=== PATIENT | male | born 1965 | race Caucasian/White ===

== ENCOUNTER → 2016-10-28 | Outpatient (CLI) | payer OTHER ==
[2016-10-28 15:58] LABS: ALT 45 U/L (21-72); AST 31 U/L (17-59); Cholesterol 139 mg/dL (<200); Creatine Kinase 150 U/L (55-170); HDL Cholesterol 34 mg/dL (40-60); Triglycerides 149 mg/dL (<150)
== END | disposition home or self-care (01) ==
LOC: LABWHC1 15:18
PROVIDERS: ATTEND Internal Medicine Interventional Cardiology
DX: E78.2 Mixed hyperlipidemia (principal)
CPT/HCPCS: 36415; 80061; 82550; 84450; 84460

== ENCOUNTER → 2017-01-08 | Outpatient (CLI) | payer OTHER ==
--- NOTE | 2017-01-08 22:55 | PN ---
PROGRESS NOTE DATE OF SERVICE: 01/08/2017 This patient is a 51-year-old gentleman who has been followed in the sleep center for treatment of obstructive sleep apnea-hypopnea syndrome. The patient had a polysomnogram done about 1 year ago, and at that time he was not able to proceed with the CPAP titration. Today the patient came to discuss the results of the sleep study. I discussed the results of the sleep study with the patient in detail. He has severe obstructive sleep apnea. Apnea-hypopnea index is 69.7 and oxygen saturation of 63.4%. Patient continues to have symptoms of obstructive sleep apnea at the present time. He still snores, wakes up from sleep. [place] Sleepiness Scale is 5. His weight is 5 pounds more than during the sleep study 1 year ago. MEDICATIONS: 1. Aspirin. 2. Metoprolol. 3. Atorvastatin. 4. Nitroglycerin on a p.r.n. basis. PHYSICAL EXAM: This is a pleasant 51-year-old gentleman without distress. VITAL SIGNS: BP 118/76, HR 55, RR 16, height 5 feet 8 inches, weight 233.6, BMI 34.3. Neck 19 inches in circumference. Temperature 98.4. Oxygen saturation at room air 96%. HEENT: PERRLA, EOMI. Evaluation of oropharynx showed tongue protrudes midline. Low position of soft palate. NECK: Supple. No JVD. Thyroid is not palpable. LUNGS: Clear to percussion and to auscultation. Good air exchange. No wheezing or rhonchi. HEART: S1, S2 with some irregularities. Slight systolic murmur. ABDOMEN: Obese. EXTREMITIES: No clubbing or cyanosis. YARN CARRIER: Awake, alert and oriented x3. Cranial nerves 2 to 7 intact. There is no fasciculation or atrophy noted. No focal deficits observed. IMPRESSION: 1. Severe obstructive sleep apnea-hypopnea syndrome by results of sleep study from 01/14/2016. 2. Obesity. 3. Coronary artery disease. 4. Status post stent insertion to coronary artery. 5. Hyperlipidemia. PLAN: 1. CPAP titration for correction of respiratory abnormalities during sleep. 2. Losing weight. 3. Sleep hygiene with regular time in bed for at least 8 hours. 4. No driving if feeling any sleepiness. Thank you very much for allowing me to participate in the management of your patient. Sincerely, Aditya Byrd MD, PhD, FAASM Diplomat of [place] [employer] [place] [employer] Photographer Assistant of [facility] [place] MMSUAD / ISSAC: [id number] /
== END | disposition home or self-care (01) ==
LOC: SLEEP 14:15
PROVIDERS: ATTEND Internal Medicine
DX: G47.33 Obstructive sleep apnea (adult) (pediatric) (principal); E66.9 Obesity, unspecified; I25.10 Atherosclerotic heart disease of native coronary artery without angina pectoris; E78.5 Hyperlipidemia, unspecified; Z95.5 Presence of coronary angioplasty implant and graft; Z79.82 Long term (current) use of aspirin

== ENCOUNTER → 2017-04-01 | Outpatient (CLI) | payer OTHER ==
--- NOTE | 2017-04-01 11:45 | PN ---
PROGRESS NOTE DATE OF SERVICE: 04/01/2017 A 51-year-old gentleman who has been followed in the Sleep Center for treatment of obstructive sleep apnea-hypopnea syndrome. Recently patient had a polysomnogram and CPAP titration and I discussed results of the sleep studies with patient in details. He has severe sleep apnea and recently was started on treatment with CPAP. He is able to use CPAP every night and does not snore with treatment. I checked his CPAP unit. Usage is 30/30 nights. Usage for more than 4 hours are 22/30 nights. CPAP pressure is 10 cm of water. Leak is 11 L/minute which is acceptable. Average usage 6.3 hours. Apnea-hypopnea index for the last night, 1.6, but for the last month is 5.9 average. Central apnea index 4.5. [place] Sleepiness Scale today is 6. MEDICATIONS: Aspirin, metoprolol, atorvastatin, nitroglycerin on p.r.n. basis. PHYSICAL EXAM: Patient in no distress. BP 117/66, HR 67, RR 16, weight 234.2, temp 98.0, oxygen saturation at room air 96%. OROPHARYNX: Low position of soft palate. ABDOMEN: Obese. Neck Supple, no JVD. Thyroid is not palpable. LUNGS Clear to percussion and to auscultation. Good air exchange. No wheezing or rhonchi. HEART S1, S2 regular. No murmurs, gallops, or rubs. EXTREMITIES No clubbing or cyanosis. DATABASE PROGRAMMER ANALYST Awake, alert, and oriented X3. Cranial nerves 2 to 7 intact. There is no fasciculation or atrophy. noted. No focal deficits observed. IMPRESSION: 1. Severe obstructive sleep apnea-hypopnea syndrome, apnea-hypopnea index 69.7. Patient demonstrated good compliance with treatment benefitting from treatment. 2. Obesity. 3. Coronary artery disease, status post stent insertion. 4. Hyperlipidemia. PLAN: 1. Patient will continue to use CPAP equipment every night for the whole night. 2. I will increase CPAP pressure to 11 cm of water. 3. Losing weight. 4. Sleep hygiene with regular time in bed for at least 8 hours. 5. No driving if feeling any sleepiness. Thank you very much for allowing me to participate in the management of your patient. Sincerely, Aditya Byrd MD, PhD, FAASM Diplomat of [employer] [place] [employer] Specialties [employer] [place] [employer] of Internal Medicine Bank Operations Officer of [facility] [place] [email or web address] / REJIN: [id number] /
== END | disposition home or self-care (01) ==
LOC: SLEEP 10:15
PROVIDERS: ATTEND Internal Medicine
DX: G47.33 Obstructive sleep apnea (adult) (pediatric) (principal); E66.9 Obesity, unspecified; I25.10 Atherosclerotic heart disease of native coronary artery without angina pectoris; E78.5 Hyperlipidemia, unspecified; Z79.899 Other long term (current) drug therapy; Z79.82 Long term (current) use of aspirin

== ENCOUNTER → 2017-05-06 | Outpatient (CLI) | payer OTHER ==
[2017-05-06 15:57] LABS: ALT 49 U/L (21-72); AST 27 U/L (17-59); Anion Gap 9 mmol/L; Blood Urea Nitrogen 16 mg/dL (9-20); Calcium 9.7 mg/dL (8.4-10.2); Carbon Dioxide 30 mmol/L (22-30); Chloride 104 mmol/L (98-107); Cholesterol 130 mg/dL (<200); Glucose 102 mg/dL (74-99); HDL Cholesterol 37 mg/dL (40-60); LDL Cholesterol,Calculated 65 mg/dL (0-99); Potassium 4.9 mmol/L (3.5-5.1); Sodium 143 mmol/L (137-145); Triglycerides 140 mg/dL (<150)
== END | disposition home or self-care (01) ==
LOC: LABWHC1 14:55
PROVIDERS: ATTEND Nurse Practitioner Adult Health
DX: I25.10 Atherosclerotic heart disease of native coronary artery without angina pectoris (principal)
CPT/HCPCS: 36415; 80048; 80061; 84450; 84460

== ENCOUNTER → 2017-06-25 | Outpatient (CLI) | payer OTHER ==
--- NOTE | 2017-06-25 17:46 | SFUN ---
SLEEP STUDY FOLLOW UP NOTE A 52-year-old gentleman who has been followed in sleep center for treatment of obstructive sleep apnea-hypopnea syndrome. The patient continued to use CPAP equipment every night. Last time I change pressure in his unit from 10 cm of water up to 11 cm of water. At that time, his apnea-hypopnea index was 5.9 average with a central apnea index 4.5. I checked the patient's CPAP unit today. Usage is 29/30 nights more than 4 hours, 26/30 nights. Average usage is 6.2 hours. Pressure is 10.9 cm of water. Leak is 18 L/minute which is acceptable. Apnea-hypopnea index average range 8.3, central apnea index 7.0. CURRENT MEDICATIONS: 1. Metoprolol. 2. Atorvastatin. 3. Nitroglycerin on p.r.n. basis. 4. Aspirin. PHYSICAL EXAM: GENERAL Patient in no distress. VITAL SIGNS BP 110/70, HR 82, RR 16, height 5 feet 7 inches, weight 234, BMI 36.6, temp 98.0, oxygen saturation at room air 94%. HEENT PERRLA, EOMI, evaluation of oropharynx showed tongue protrudes midline, moderately low position of soft palate. Neck Supple, no JVD. Thyroid is not palpable. LUNGS Clear to percussion and to auscultation. Good air exchange. No wheezing or rhonchi. HEART S1, S2 regular. No murmurs, gallops, or rubs. ABDOMEN Obese, soft and nontender. Bowel sounds are present. No organomegaly appreciated. EXTREMITIES No clubbing or cyanosis. FABRIC AWNING REPAIRER Awake, alert, and oriented X3. Cranial nerves 2 to 7 intact. There is no fasciculation or atrophy. noted. No focal deficits observed. IMPRESSION: 1. Obstructive and central sleep apnea-hypopnea syndrome in the severe range, 69.7 per hour, improved with CPAP to the mild range. The patient demonstrated practically 100% compliance with treatment, benefitting from treatment. 2. Obesity. 3. Coronary artery disease, status post stent insertion. 4. Hyperlipidemia. PLAN: 1. I changed regimen in the machine to automatic with a range of pressure from 4 up to 12 cm of water. 2. Patient will continue to use equipment every night for the whole night. 3. Losing weight. 4. Sleep hygiene, regular time in time bed for at least 8 hours. 5. No driving if feeling any sleepiness. Thank you very much for allowing me to participate in the management of your patient. Sincerely, Aditya Byrd MD, PhD, FAASM Diplomat of [place] [employer] [employer] Stop Attacher of [facility] [place] MMODL / REJIN: [id number] /
== END | disposition home or self-care (01) ==
LOC: SLEEP 15:11
PROVIDERS: ATTEND Internal Medicine
DX: G47.33 Obstructive sleep apnea (adult) (pediatric) (principal); G47.39 Other sleep apnea; Z99.89 Dependence on other enabling machines and devices; E66.9 Obesity, unspecified; I25.10 Atherosclerotic heart disease of native coronary artery without angina pectoris; E78.5 Hyperlipidemia, unspecified; Z68.36 Body mass index [BMI] 36.0-36.9, adult; Z95.5 Presence of coronary angioplasty implant and graft; Z79.82 Long term (current) use of aspirin; Z79.899 Other long term (current) drug therapy

== ENCOUNTER → 2017-09-03 | Outpatient (CLI) | payer OTHER ==
--- NOTE | 2017-09-03 11:37 | PN ---
PROGRESS NOTE DATE OF SERVICE: 09/03/2017. A 52-year-old gentleman who has been followed in the Sleep Center for treatment of obstructive sleep apnea-hypopnea syndrome. I saw patient 2 months ago. At that time, apnea-hypopnea index was 8.3, and central apnea index was 7.0. Pressure at that time was around 11 cm of water. I changed pressure to automatic regimen to range of pressure from the 4 to 12 today. Patient came for followup visit. He continued to use his CPAP equipment every night for the whole night without problems. No snoring with the machine. [place] Sleepiness Scale is only 1. I checked his CPAP unit. Usage is 100% of the nights more than 4 hours, average is 7.2 hours. Pressure in the machine is 9 cm of water. Leak is 13 L/minute which is acceptable. Apnea-hypopnea index for the last month only 2.2, which is perfect. MEDICATIONS: Atorvastatin, metoprolol, aspirin, nitroglycerin on p.r.n. basis. PHYSICAL EXAM: Patient in no distress. BP 110/66, HR 58, RR 16, height 5, 7, weight 233, BMI 36.4, temp 97.6, oxygen saturation room air 97%. OROPHARYNX: Moderately low position of soft palate. ABDOMEN: Slightly obese. Neck Supple, no JVD. Thyroid is not palpable. LUNGS Clear to percussion and to auscultation. Good air exchange. No wheezing or rhonchi. HEART S1, S2 regular. No murmurs, gallops, or rubs. ABDOMEN Soft and nontender. Bowel sounds are present. No organomegaly appreciated. EXTREMITIES No clubbing or cyanosis. TELETYPIST Awake, alert, and oriented X3. Cranial nerves 2 to 7 intact. There is no fasciculation or atrophy. noted. No focal deficits observed. IMPRESSION: 1. Obstructive sleep apnea-hypopnea syndrome in severe range on control with CPAP at the range of pressure around 9 cm of water. Patient demonstrated 100% compliance with treatment, benefitting from treatment. 2. Coronary artery disease, status post stent insertion. 3. Hyperlipidemia. 4. Obesity. PLAN: 1. Patient will continue to use CPAP equipment with the same range of pressure. 2. Losing weight. 3. Sleep hygiene with regular time in bed for at least 8 hours. 4. No driving if feeling any sleepiness. 5. Followup visit in 1 year. Thank you very much for allowing me to participate in the management of your patient. Sincerely, Aditya Byrd MD, PhD, FAASM Diplomat of [place] [employer] [place] [employer] Feather Renovator of [facility] [place] DANA / ISSAC: [id number] /
== END | disposition home or self-care (01) ==
LOC: SLEEP 10:06
PROVIDERS: ATTEND Internal Medicine
DX: G47.33 Obstructive sleep apnea (adult) (pediatric) (principal); I25.10 Atherosclerotic heart disease of native coronary artery without angina pectoris; E78.5 Hyperlipidemia, unspecified; E66.9 Obesity, unspecified; Z95.1 Presence of aortocoronary bypass graft; Z99.89 Dependence on other enabling machines and devices; Z68.36 Body mass index [BMI] 36.0-36.9, adult; Z79.899 Other long term (current) drug therapy; Z79.82 Long term (current) use of aspirin

== ENCOUNTER → 2017-12-16 | Outpatient (CLI) | payer OTHER ==
[2017-12-16 16:11] LABS: ALT 49 U/L (21-72); AST 36 U/L (17-59); Cholesterol 127 mg/dL (<200); HDL Cholesterol 38 mg/dL (40-60); LDL Cholesterol,Calculated 57 mg/dL (0-99); Triglycerides 162 mg/dL (<150)
== END | disposition home or self-care (01) ==
LOC: LABWHC1 15:33
PROVIDERS: ATTEND Internal Medicine Interventional Cardiology
DX: E78.2 Mixed hyperlipidemia (principal)
CPT/HCPCS: 36415; 80061; 84450; 84460

== ENCOUNTER → 2018-12-14 | Outpatient (CLI) | payer OTHER ==
[2018-12-14 23:24] LABS: Chol/HDL Ratio 3.81; LDL Cholesterol,Calculated 37.6 mg/dL (0.0-131.0); VLDL Calculation 63.4 mg/dL (5.00-40.00)
== END | disposition home or self-care (01) ==
LOC: LABWHC1 15:39
PROVIDERS: ATTEND Nurse Practitioner Adult Health
DX: E78.2 Mixed hyperlipidemia (principal)
CPT/HCPCS: 36415; 80061; 82550; 84450; 84460

== ENCOUNTER → 2019-06-09 | Outpatient (CLI) | payer OTHER ==
[2019-06-09 16:17] LABS: LDL Cholesterol,Calculated 44.4 mg/dL (0.0-131.0); VLDL Calculation 33.6 mg/dL (5.00-40.00)
== END | disposition home or self-care (01) ==
LOC: LABWHC1 11:19
PROVIDERS: ATTEND Nurse Practitioner Adult Health
DX: E78.2 Mixed hyperlipidemia (principal)
CPT/HCPCS: 36415; 80061; 84450; 84460

== ENCOUNTER → 2020-03-05 | Outpatient (CLI) | payer OTHER ==
[2020-03-05 12:14] LABS: ALT 33 U/L (4-49); AST 33 U/L (17-59); African American GFR (CKD) 80 (>60 ml/min/1.73 sqM); Albumin/Globulin Ratio 1.4; Alkaline Phosphatase 52 U/L (38-126); Anion Gap 4 mmol/L; Blood Urea Nitrogen 12 mg/dL (9-20); Calcium 9.2 mg/dL (8.4-10.2); Carbon Dioxide 29 mmol/L (22-30); Chloride 107 mmol/L (98-107); Cholesterol 123 mg/dL (<200); Globulin 2.9 g/dL; Glucose 129 mg/dL (74-99); HDL Cholesterol 33 mg/dL (40-60); LDL Cholesterol,Calculated 57 mg/dL (0-99); Non-African American GFR(CKD) 69 (>60 ml/min/1.73 sqM); Potassium 4.6 mmol/L (3.5-5.1); Sodium 140 mmol/L (137-145); Total Bilirubin 0.6 mg/dL (0.2-1.3); Total Protein 6.9 g/dL (6.3-8.2); Triglycerides 163 mg/dL (<150)
== END | disposition home or self-care (01) ==
LOC: LABWHC1 10:19
PROVIDERS: ATTEND Nurse Practitioner Adult Health
DX: E78.2 Mixed hyperlipidemia (principal)
CPT/HCPCS: 36415; 80053; 80061

== ENCOUNTER 2023-05-25 09:53 | Day surgery (SDC) | payer OTHER ==
[2023-05-19 09:06] VITALS: BMI 34.3
--- NOTE | 2023-05-25 07:32 | P.GSHP ---
History of Present Illness H&P Date: 05/25/23 Chief Complaint: Chronic cholecystitis 57-year-old male here for elective cholecystectomy. Patient with history of gallstones. Has had frequent episodes will last 5-10 years. Increasing in frequency. Denies any change in the color of his skin urine or stool. Past Medical History Past Medical History: Coronary Artery Disease (CAD), Hyperlipidemia, Myocardial Infarction (ND), Sleep Apnea/CPAP/BIPAP Last Myocardial Infarction Date:: 09/01/2015 History of Any Multi-Drug Resistant Organisms: None Reported Past Surgical History: Heart Catheterization With Stent Past Anesthesia/Blood Transfusion Reactions: No Reported Reaction Date of Last Stent Placement:: 08/2015 Past Psychological History: No Psychological Hx Reported Smoking Status: Never smoker Past Alcohol Use History: None Reported Past Drug Use History: None Reported - Past Family History Father Family Medical History: Myocardial Infarction (ND) Mother Family Medical History: Cancer Medications and Allergies Home Medications Medication Instructions Recorded Confirmed Type Aspirin [Adult Low Dose Aspirin EC] 81 mg PO DAILY 05/19/23 05/19/23 History Atorvastatin [Lipitor] 80 mg PO DAILY 05/19/23 05/19/23 History Fenofibrate Nanocrystallized 145 mg PO DAILY 05/19/23 05/19/23 History [Fenofibrate] Metoprolol Succinate (ER) [Toprol 25 mg PO DAILY 05/19/23 05/19/23 History Xl] Nitroglycerin Sl Tabs [Nitrostat] 0.4 mg SUBLINGUAL Q5M PRN 05/19/23 05/19/23 History Ubidecarenone [Coenzyme Q10] 10 mg PO DAILY 05/19/23 05/19/23 History Allergies Allergy/AdvReac Type Severity Reaction Status Date / Time Penicillins Allergy Unknown Verified 05/19/23 08:47 Surgical - Exam Physical exam: General: Well-developed, well-nourished HEENT: Normocephalic, sclerae nonicteric Abdomen: Nontender, nondistended Extremities: No edema Neuro: Alert and oriented Assessment and Plan (1) Chronic cholecystitis Narrative/Plan: 57-year-old male with chronic cholecystitis. We'll proceed with laparoscopic, possible open cholecystectomy at this time. Risks of bleeding, infection, bile leak, bile duct injury, retained common bile duct stone, trocar injury, conversion to an open procedure, hernia, anesthesia related complications were reviewed. The patient understands and wishes to proceed. We'll check preoperative CBC and CMP Status: Acute Code(s): K81.1 - CHRONIC CHOLECYSTITIS SNOMED Code(s): 06487392
[~2023-05-25 09:53] MED LIST: ACETAMINOPHEN TAB 500 MG TAB PO PRN; DEXAMETHASONE SOD PHOSPHATE 4 MG/ML 1 ML VIAL IV ONE; HEPARIN SODIUM,PORCINE 5,000 UNIT/ML 1 ML VIAL SQ PRN; HYDROmorphone 0.5 MG/0.5 ML SYRINGE IVP PRN; MIDAZOLAM 2 MG/2 ML VIAL IV PRN; ONDANSETRON 4 MG/2 ML VIAL IVP ONE; SCOPOLAMINE 1 MG/72 HR PATCH TRANSDERM ONE
[2023-05-25] MEDS: LACTATED RINGERS 1,000 ML IV SCH ×2 (09:53→13:24)
[2023-05-25 10:38] LABS: Basophils % (A) 1 %; Eosinophils # (A) 0.1 k/uL (0-0.7); Eosinophils % (A) 3 %; HCT 45.3 % (39.0-53.0); HGB 15.4 gm/dL (13.0-17.5); Lymphocytes # (A) 1.6 k/uL (1.0-4.8); Lymphocytes % (A) 31 %; MCH 30.4 pg (25.0-35.0); MCV 89.3 fL (80.0-100.0); Mean Platelet Volume 7.6; Monocytes # (A) 0.3 k/uL (0-1.0); Monocytes % (A) 7 %; Neutrophils % (A) 57 %; Platelet Count 315 k/uL (150-450); RBC 5.07 m/uL (4.30-5.90); RDW 12.9 % (11.5-15.5); WBC 5.2 k/uL (3.8-10.6)
[2023-05-25 10:53] LABS: ALT 38 U/L (4-49); AST 35 U/L (17-59); African American GFR (CKD) 87 (>60 ml/min/1.73 sqM); Albumin 4.7 g/dL (3.5-5.0); Alkaline Phosphatase 62 U/L (38-126); Anion Gap 7 mmol/L; Blood Urea Nitrogen 14 mg/dL (9-20); Calcium 9.4 mg/dL (8.4-10.2); Carbon Dioxide 26 mmol/L (22-30); Chloride 108 mmol/L (98-107); Glucose 129 mg/dL (74-99); Non-African American GFR(CKD) 75 (>60 ml/min/1.73 sqM); Potassium 4.3 mmol/L (3.5-5.1); Sodium 141 mmol/L (137-145); Total Bilirubin 0.7 mg/dL (0.2-1.3); Total Protein 7.9 g/dL (6.3-8.2)
[2023-05-25] MEDS ORDERED: SUCCINYLCHOLINE CHLORIDE 200 MG/10 ML VIAL IV ONE (11:52)
[2023-05-25] MEDS ORDERED: PROPOFOL 10 MG/ML 20 ML VIAL IV ONE (11:52)
[2023-05-25] MEDS ORDERED: HYDROmorphone (PF) 1 MG/ML ONE (11:52)
[2023-05-25] MEDS ORDERED: MIDAZOLAM 2 MG/2 ML VIAL ONE (11:52)
[2023-05-25] MEDS ORDERED: GLYCOPYRROLATE 0.2 MG/ML 2 ML VIAL ONE (11:52)
[2023-05-25] MEDS ORDERED: KETOROLAC 15 MG/ML 1 ML VIAL ONE (11:52)
[2023-05-25] MEDS ORDERED: ROCURONIUM 10 MG/ML (5 ML VIAL) IV ONE (11:52)
[2023-05-25] MEDS ORDERED: fentaNYL (PF) 50 MCG/ML 2 ML AMP ONE (11:52)
[2023-05-25] MEDS ORDERED: NEOSTIGMINE 1 MG/ML 10 ML VIAL ONE (11:52)
[2023-05-25] MEDS ORDERED: LIDOCAINE 1% INJ 10MG/ML (20 ML MDV) ONE (11:52)
[2023-05-25] MEDS ORDERED: BUPIVACAINE (PF) 0.25% 30 ML VIAL SQ ONE ×2 (12:30)
[2023-05-25] MEDS ORDERED: ACETAMINOPHEN TAB 325 MG TAB PO SCH (14:30)
--- NOTE | 2023-05-25 14:30 | P.OP ---
Date of Procedure: 05/25/23 Procedure(s) Performed: PREOPERATIVE DIAGNOSIS: Chronic cholecystitis POSTOPERATIVE DIAGNOSIS: Same PROCEDURE: Laparoscopic cholecystectomy SURGEON: Eileen EBL: Minimal see anesthesia record ANESTHESIA: Gen. COMPLICATIONS: None OPERATIVE PROCEDURE: The patient was brought and placed on the operating room table in the supine position. The patient was placed under general anesthesia at that time. The abdomen was prepped and draped in the usual sterile fashion. A small vertical infraumbilical incision was made. The fascia was grasped with the Stanley forceps. The fascia was retracted anteriorly. The Veress needle was advanced into the peritoneal cavity. The saline drop test was normal. Insufflation however showed a high-pressure. I aborted that site and instead placed in optical trocar in the right upper quadrant under direct visualization. Full insufflation took place. There was a small amount of air within the preperitoneal space at the umbilicus. A 5 mm trocar was placed at the umbilicus as well as an additional 5 mm trocar lateral right upper quadrant. A 12 mm trocar was advanced into the epigastric incision site. The gallbladder was inspected. Significant chronic inflammation was noted. There was a large amount of fatty tissue adherent to the gallbladder. Both blunt dissection cautery and LigaSure were used to mobilize the gallbladder. Once we reached the infundibulum thankfully the chronic inflammatory changes seemed to spare that region. I was able to visualize the cystic duct nicely. The critical view of safety was achieved after blunt dissection. The cystic duct was then divided after placement of 2 12 mm clips on the patient's side and one on the specimen side. The cystic artery was identified and clipped as well. A small vessel was seen along the gallbladder fossa and clipped as well. The gallbladder was then removed from the liver bed using both electrocautery and LigaSure. Significant chronic inflammation was also present between the gallbladder and the liver bed. he gallbladder was then removed from the epigastric trocar site with an Endo Catch bag. In order to remove the gallbladder I had to lengthen the fascia medially and laterally. The skin incision was also lengthened. The gallbladder fossa was irrigated with saline. There was no evidence of any bleeding or biliary drainage seen. The fascia at the 12 millimeter site was closed using a running 0 Vicryl stitch. The trochars were then removed. The skin at all 4 sites was closed using a 4-0 Monocryl stitch. Skin glue was utilized on the incision sites. At the end of this procedure the sponge and needle counts were correct. DISPOSITION: Stable to the recovery room
[2023-05-25 14:44] VITALS: TEMP 97
[2023-05-25 15:57] VITALS: RESP 18
[2023-05-25] MEDS ORDERED: TAMSULOSIN 0.4 MG CAP.ER.24H PO ONE (17:02)
[2023-05-25 17:08] VITALS: BP 113/65; PULSE 63
[2023-05-25] MEDS ORDERED: IBUPROFEN 600 MG TAB PO SCH (17:30)
== END 2023-05-25 17:54 | disposition home or self-care (01) ==
LOC: OR 09:53
PROVIDERS: ATTEND Surgery
DX: K80.12 Calculus of gallbladder with acute and chronic cholecystitis without obstruction (principal); I25.2 Old myocardial infarction; I25.10 Atherosclerotic heart disease of native coronary artery without angina pectoris; E78.5 Hyperlipidemia, unspecified; G47.33 Obstructive sleep apnea (adult) (pediatric); F10.90 Alcohol use, unspecified, uncomplicated; Z88.0 Allergy status to penicillin; Z79.82 Long term (current) use of aspirin; Z79.899 Other long term (current) drug therapy
CPT/HCPCS: 47562; 88304; 80053; 85025; J2250; J0330; J1644; J1100; J2710; J0690; J2405; J2001; J3010; J1170; J1885; J2704; J0665